=== PATIENT | female | born 1970 | race Caucasian/White ===

== ENCOUNTER 2023-01-17 01:24 | Outpatient (CLI) | payer OTHER, SELFPAY ==
[2023-01-17 12:50] LABS: FREE T4 0.81 ng/dL (0.76-1.46); TSH 1.42 uIU/mL (0.36-3.74)
== END 2023-01-17 01:25 | disposition home or self-care (01) ==
LOC: LBO 01:24
PROVIDERS: PCP Nurse Practitioner Family; Visit Provider Physician Assistant
DX: E04.9 Nontoxic goiter, unspecified (principal)
CPT/HCPCS: 36415; 84439; 84443

== ENCOUNTER 2023-02-25 15:19 | Outpatient (CLI) | payer OTHER, SELFPAY ==
[2023-02-25 11:18] LABS: Abs Immature Grans 0.04 10^3/uL (0.0-0.06); Absolute Basophil Count 0.04 10^3/uL (0.0-0.2); Absolute Eosinophil Count 0.19 10^3/uL (0.0-0.7); Absolute Lymphocyte Count 1.68 10^3/uL (1.2-3.4); Absolute Neutrophil Count 5.96 10^3/uL (1.2-6.7); Basophils % 0.5; Eosinophils % 2.3; HCT 43.5 % (36.0-46.0); HGB 14.6 g/dL (11.2-15.7); Immature Grans % 0.5; MCHC 33.6 % (32.0-36.0); MCV 89 fL (80-95); Monocytes % 5.9; Neutrophils % 70.8; Platelet Count 241 10^3/uL (130-400); RBC 4.87 10^6/uL (3.93-5.22); RDW 12.5 % (11.7-14.6); RDW-SD 41.2 fL; WBC 8.41 10^3/uL (4.4-10.8)
[2023-02-25 11:31] LABS: Hemoglobin A1C 5.3 % (<5.7)
[2023-02-25 11:40] LABS: Anion Gap 8.3 mmol/L (3-11); BUN 20 mg/dL (7-18); CO2 29.7 mmol/L (21.0-32.0); Calcium 9.2 mg/dL (8.5-10.1); Calculated LDL 125 mg/dL (<100); Chloride 103 mmol/L (98-107); Cholesterol 219 mg/dL (<200); Estimated GFR 67.78 (mL/min/1.73m2); Glucose 90 mg/dL (74-106); HDL Cholesterol 48 mg/dL (40-60); Potassium 3.9 mmol/L (3.5-5.1); Sodium 141 mmol/L (136-145); Triglyceride 231 mg/dL (<150)
== END 2023-02-25 15:20 | disposition home or self-care (01) ==
LOC: LBO 15:20
PROVIDERS: PCP Nurse Practitioner Family; Visit Provider Nurse Practitioner Family
DX: E04.9 Nontoxic goiter, unspecified (principal); Z76.89 Persons encountering health services in other specified circumstances
CPT/HCPCS: 36415; 80048; 80061; 83036; 85025

== ENCOUNTER → 2023-04-08 01:25 | Outpatient (CLI) | payer OTHER, SELFPAY ==
--- NOTE | 2023-04-08 08:15 | DI.US_ITS ---
Exam(s) US NEEDLE LOCAL OTHER WO RAD EXAM: thyroid goiter, Bilateral T4 nodules, THYROID GOITER, E04.9 COMPARISON: No exams were available for comparison TECHNIQUE: Ultrasound performed using standard protocol. FINDINGS: Sonography was provided for Dr. Bains during the performance of a thyroid nodule biopsy. Please re bret to the procedure report for complete details. DATA REPOSITORY:
--- NOTE | 2023-04-08 11:45 | PAPNONF_PTH ---
PATIENT: Zeny Dumont LOC: [facility] U#:[id number] AGE/SX: 55/F ROOM: RE04/08/[address]: Radha Poon : 1970 BED: DIS: SPEC #: [id number] RECD: 04/08/23 18:33 STATUS: RAY RECamila #: [id number] KARAN: 04/08/23 11:[address]: Radha Poon DEPT: [facility] Cytology RECD BY: Paula Pacheco ENTERED: 04/08/23 18:34 SP TYPE: ANJALI [place] DR: Blanca Rolon, ABEL Tissues: 1 - BODY FLUID CYTO-FINE NEEDLE ASPIRATE-[facility] 2 - BODY FLUID CYTO-FINE NEEDLE ASPIRATE-[facility] Procedures: BODY FLUID CYTO-FINE NEEDLE ASPIRATE-[facility] Comments: [id number] (PATH FNA CONSULT) (REFRIGERATED)
--- NOTE | 2023-04-08 13:10 | W.PROCNOTE ---
Date of service: 04/08/23 Time of Service: 13:10 Procedure Note Date of procedure: 04/08/23 Procedure: Ultrasound-guided FNA, left and right thyroid nodules, pathology available Procedure Diagnosis: Multinodular thyroid Procedure Indications: Patient with 2 thyroid nodules meeting criteria for biopsy. Procedure Description: The patient was positioned in supine position and prepped and draped in appropriate fashion after discussing risks and benefits and the procedure and postprocedural course and obtaining written consent. Ultrasound was used to localize first the right thyroid nodule and then the second thyroid nodule. Skin and subcutaneous tissues were anesthetized with 1% lidocaine with 1/100,000 epinephrine. A 25-gauge needle was then passed into the right thyroid nodule, and used to sample the solid components of the thyroid nodule. Cystic components were drained revealing a translucent pink material. This was discarded. After ensuring adequate cellularity, 2 additional passes were made for potential Afirma testing. Once the right side had been adequately biopsied, the left isthmus abutting nodule was similarly biopsied, with no areas of cystic degeneration. Pathology again confirmed cellular adequacy. 2 additional passes were made for potential Afirma testing. After ensuring adequate hemostasis, a sterile dressing was applied. The patient was then allowed to sit and then to stand. Her vital signs remained stable. She was able to ambulate without difficulty. I was present throughout the entire procedure. She will remove the bandage in an hour and not replace it. She will call with any signs of infection or any concerns. She will use ibuprofen or Tylenol for any discomfort. She will call if she does not hear from me within 1 week with regard to pathology results. Further care will be determined based on the outcomes of the FNA.
[2023-04-08 14:48] LABS: FREE T4 0.81 ng/dL (0.76-1.46)
[2023-04-09 15:05] LABS: Thyroglobulin Antibody <15 U/mL (<=60); Thyroperoxidase Antibody <28 U/mL (<=60)
[2023-04-23 16:23] LABS: Thyroid Stimulating Immunoglob <1.0 TSI index (<=1.3)
== END ==
PROVIDERS: PCP Nurse Practitioner Family; Visit Provider Registered Nurse Maternal Newborn
DX: E04.2 Nontoxic multinodular goiter
CPT/HCPCS: 10005; 36415; 86376; 76942; 84439; 84445; 88104